=== PATIENT | female | born 1955 | race African-American/Black ===

== ENCOUNTER 2019-05-25 13:30 | Emergency (ER) | payer OTHER ==
[~2019-05-25] VITALS: Ht 172.7 cm; Wt 48.0 kg
[~2019-05-25 13:30] MED LIST: OMEPRAZOLE
[2019-05-25 14:16] VITALS: BP 117/81
[2019-05-25] MEDS ORDERED: ACETAMINOPHEN 325MG TABLET PO ONE (15:00)
== END 2019-05-25 15:57 | disposition home or self-care (01) ==
LOC: ER 13:30
DX: S92.912A Unspecified fracture of left toe(s), initial encounter for closed fracture (principal); X58.XXXA Exposure to other specified factors, initial encounter; Y93.89 Activity, other specified; Y92.89 Other specified places as the place of occurrence of the external cause; Y99.8 Other external cause status; I11.0 Hypertensive heart disease with heart failure; I50.9 Heart failure, unspecified; J44.9 Chronic obstructive pulmonary disease, unspecified; Z90.710 Acquired absence of both cervix and uterus
CPT/HCPCS: 73660; 99283; Z7610

== ENCOUNTER 2023-05-17 16:50 | Emergency (ER) | payer OTHER ==
[~2023-05-17] VITALS: Ht 172.7 cm; Wt 54.5 kg
[~2023-05-17 16:50] MED LIST changes: +ALBU90AE INH; +AMLO5TAB88 PO; +ASPI-1497 MT; +LOSA25TA3 MT; -OMEPRAZOLE; +P20 PO
[2023-05-17 17:04] VITALS: BP 182/117; RESP 18; TEMP 98.3; O2SAT 99
[2023-05-17 17:05] VITALS: PULSE 135
[2023-05-17] MEDS ORDERED: IBUP-2028 MT (18:38)
[2023-05-17] MEDS ORDERED: LIDO1ADH23 TP (18:38)
[2023-05-17] MEDS ORDERED: TOPUD PO (18:38)
[2023-05-17] MEDS ORDERED: ACETAMINOPHEN 325MG TABLET PO ONE (18:45)
[2023-05-17] MEDS ORDERED: IBUPROFEN 400MG TABLET PO ONE (18:45)
== END 2023-05-17 19:33 | disposition home or self-care (01) ==
LOC: ER 16:50
DX: S83.92XA Sprain of unspecified site of left knee, initial encounter (principal); I11.0 Hypertensive heart disease with heart failure; I50.9 Heart failure, unspecified; J44.9 Chronic obstructive pulmonary disease, unspecified; W18.39XA Other fall on same level, initial encounter; Y93.89 Activity, other specified; Y92.89 Other specified places as the place of occurrence of the external cause; Y99.8 Other external cause status
CPT/HCPCS: 73562; 99283; Z7610; L1830